=== PATIENT | male | born 1975 | race Caucasian/White ===

== ENCOUNTER → 2020-04-30 | Outpatient (CLI) | payer BC | LOC: LAB 09:38 | PROVIDERS: ATTEND Nurse Practitioner | DX: Z20.828 Contact with and (suspected) exposure to other viral communicable diseases (principal) ==

== ENCOUNTER 2020-06-24 01:37 | Emergency (ER) | payer BC ==
[~2020-06-24] VITALS: Ht 182.9 cm; Wt 90.7 kg
[2020-06-24 01:59] VITALS: BP 0/0
== END 2020-06-24 01:59 ==
LOC: ER 01:37
DX: I46.9 Cardiac arrest, cause unspecified (principal)